=== PATIENT | female | born 1935 | race Caucasian/White ===

== ENCOUNTER 2024-04-22 12:34 | Observation (INO) ==
[2024-04-22 13:26] LABS: ABS Lymphocytes 0.7 10^3/uL (1.0-4.8); ABS Monocytes 0.2 10^3/uL (0.0-0.9); ABS Neutrophils 6.4 10^3/uL (1.5-7.6); ABS Nucleated RBC 0.01 10^3/ul; Eosinophil % 0.1 %; Hematocrit 38.4 % (35-45); Hemoglobin 12.9 g/dL (11.5-14.3); Lymphocyte % 9.8 %; Mean Corpuscular Hemoglobin 29.4 pg (27-33); Mean Corpuscular Hgb Conc 33.6 g/dL (31-36); Mean Corpuscular Volume 87.5 fL (80-97); Mean Platelet Volume 7.5 fL (7.5-11.2); Nucleated Red Blood Cells % 0.1 %/100WBC (0.0-0.8); Platelet Count 285 10^3/uL (150-450); Red Blood Count 4.39 10^6/uL (3.63-4.92); Red Cell Distribution Width 13.5 % (12-17); White Blood Count 7.4 10^3/uL (3.8-11.8)
[2024-04-22] MEDS: Ondansetron 4 mg VIAL 2 MG/ML 2 ml VIAL IV ONE (13:28)
[2024-04-22 14:05] LABS: Albumin 4.4 g/dL (3.2-5.2); Albumin/Globulin Ratio 2.1 (1-3); C Reactive Protein 1.03 mg/L (<8.01); Calcium 9.3 mg/dL (8.6-10.3); Creatinine, Serum 0.85 mg/dL (0.51-0.95); Globulin 2.1 g/dL (2-4); Potassium 4.3 mmol/L (3.5-5.0); Total Bilirubin 0.7 mg/dL (0.2-1.0); Total Protein 6.5 g/dL (6.4-8.9); eGFR CKD-EPI 66.3 (>60)
[2024-04-22] MEDS: Iohexol 350 (CONTRAST) 500 ML MDV IV ONE (15:02)
[2024-04-22] MEDS: Lactated Ringers 1000 ml BAG 1,000 ML IV ONE (17:40)
[2024-04-22] MEDS ORDERED: Propofol 10 MG/ML 20 ML BTL ONE (17:47)
[2024-04-22] MEDS ORDERED: Dexamethasone IV 4 MG/ML VIAL 1 ml VIAL ONE (17:47)
[2024-04-22] MEDS ORDERED: fentaNYL 100 mcg/2 ml 50 MCG/ML VIAL ONE (17:47)
[2024-04-22] MEDS ORDERED: Ondansetron 4 mg VIAL 2 MG/ML 2 ml VIAL ONE (17:47)
[2024-04-22] MEDS ORDERED: Lidocaine 2% PF 5 ML VIAL ONE (17:47)
[2024-04-22] MEDS ORDERED: Bupivacaine 0.5% SDV PF 30ML VIAL ONE (17:50)
[2024-04-22] MEDS ORDERED: Rocuronium 50 mg VIAL 10 mg/ml 5 ml VIAL (50 mg) ONE (18:07)
[2024-04-22] MEDS ORDERED: ceFAZolin 2 GM PREMIX 2 GM/50 ML BAG ONE (18:08)
[2024-04-22] MEDS ORDERED: Succinylcholine 200 mg VIAL 20 mg/ml 10 ml VIAL (200 mg) ONE (18:38)
[2024-04-22] MEDS ORDERED: HYDROmorphone 1 MG/1 ML SYRINGE IV SLOW PU PRN (20:35)
[2024-04-22] MEDS ORDERED: Ondansetron 4 mg VIAL 2 MG/ML 2 ml VIAL IV PRN ×2 (20:35→20:42)
[2024-04-22] MEDS ORDERED: HYDROmorphone 1 MG/1 ML SYRINGE IV PRN (20:42)
[2024-04-22] MEDS ORDERED: fentaNYL 100 mcg/2 ml 50 MCG/ML VIAL IV PRN (20:42)
[2024-04-22] MEDS ORDERED: Naloxone 0.4 mg VIAL 0.4 mg/ml 1 ml VIAL IV PRN (20:42)
[2024-04-22] MEDS ORDERED: Acetaminophen IV 1 GM/100ML 1,000 MG/100 ML BAG IV ONE (20:52)
[2024-04-22] MEDS: Acetaminophen IV 1 GM/100ML 1,000 MG/100 ML BAG IV SCH (20:53)
[2024-04-22] MEDS: Lactated Ringers 1000 ml BAG 1,000 ML IV SCH (22:20)
[2024-04-23 10:13] VITALS: BP 124/71
[2024-04-23] MEDS ORDERED: Enoxaparin 40 MG/0.4 ML SYR SUBCUT SCH (21:00)
== END 2024-04-23 12:50 | disposition home or self-care (01) ==
LOC: ED 12:34 → EDHOLD 12:34 → AA 17:48 → SSU 21:56
PROVIDERS: ADMIT Surgery Surgical Critical Care; ATTEND Surgery

== ENCOUNTER 2024-05-02 19:10 | Observation (INO) ==
[2024-05-02 20:43] LABS: ABS Eosinophils 0.1 10^3/uL (0.0-0.5); ABS Monocytes 0.7 10^3/uL (0.0-0.9); ABS Neutrophils 8.3 10^3/uL (1.5-7.6); ABS Nucleated RBC 0.01 10^3/ul; Eosinophil % 0.8 %; Hematocrit 40.3 % (35-45); Hemoglobin 13.7 g/dL (11.5-14.3); Lymphocyte % 9.7 %; Mean Corpuscular Hgb Conc 34.1 g/dL (31-36); Mean Platelet Volume 7.8 fL (7.5-11.2); Nucleated Red Blood Cells % 0.1 %/100WBC (0.0-0.8); Platelet Count 356 10^3/uL (150-450); Red Blood Count 4.58 10^6/uL (3.63-4.92); Red Cell Distribution Width 13.2 % (12-17); White Blood Count 10.1 10^3/uL (3.8-11.8)
[2024-05-02] MEDS: Lactated Ringers 1000 ml BAG 1,000 ML IV ONE (21:11)
[2024-05-02 21:22] LABS: Albumin 4.1 g/dL (3.2-5.2); Albumin/Globulin Ratio 1.8 (1-3); C Reactive Protein 3.52 mg/L (<8.01); Calcium 9.3 mg/dL (8.6-10.3); Creatinine, Serum 0.92 mg/dL (0.51-0.95); Globulin 2.3 g/dL (2-4); Potassium 4.2 mmol/L (3.5-5.0); Total Bilirubin 0.6 mg/dL (0.2-1.0); Total Protein 6.4 g/dL (6.4-8.9); eGFR CKD-EPI 60.3 (>60)
[2024-05-02] MEDS: Iohexol 300 (CONTRAST) 10 ML SDV IV ONE (22:00)
[2024-05-03] MEDS ORDERED: ACETAMINOPHEN IV PRN ×2 (01:11→11:32)
[2024-05-03] MEDS: NS 0.9% 1000 ml BAG 1,000 ML IV SCH (01:30)
[2024-05-03] MEDS: cefTRIAXone 1 gm/50 mL D5W 1 GM/50 ML BAG IV SCH (02:17)
[2024-05-03 09:10] LABS: ABS Eosinophils 0.1 10^3/uL (0.0-0.5); ABS Lymphocytes 0.9 10^3/uL (1.0-4.8); ABS Monocytes 0.5 10^3/uL (0.0-0.9); ABS Neutrophils 4.9 10^3/uL (1.5-7.6); Eosinophil % 1.4 %; Hematocrit 34.6 % (35-45); Hemoglobin 11.9 g/dL (11.5-14.3); Lymphocyte % 13.7 %; Mean Corpuscular Hemoglobin 30.2 pg (27-33); Mean Corpuscular Hgb Conc 34.4 g/dL (31-36); Mean Corpuscular Volume 87.7 fL (80-97); Mean Platelet Volume 7.9 fL (7.5-11.2); Nucleated Red Blood Cells % 0.1 %/100WBC (0.0-0.8); Platelet Count 316 10^3/uL (150-450); Red Blood Count 3.95 10^6/uL (3.63-4.92); Red Cell Distribution Width 13.4 % (12-17); White Blood Count 6.4 10^3/uL (3.8-11.8)
[2024-05-03 09:22] LABS: Calcium 8.4 mg/dL (8.6-10.3); Creatinine, Serum 0.8 mg/dL (0.51-0.95); Magnesium 2.1 mg/dL (1.9-2.7); Potassium 4.3 mmol/L (3.5-5.0); eGFR CKD-EPI 71.3 (>60)
[2024-05-03] MEDS: Enoxaparin 30 MG/0.3 ML SYR SUBCUT SCH ×2 (20:00→21:59)
[2024-05-03] MEDS ORDERED: cefTRIAXone 1 gm/50 mL D5W 1 GM/50 ML BAG IV SCH (22:30)
[2024-05-04 05:53] LABS: ABS Eosinophils 0.2 10^3/uL (0.0-0.5); ABS Lymphocytes 1.1 10^3/uL (1.0-4.8); ABS Monocytes 0.6 10^3/uL (0.0-0.9); ABS Neutrophils 4.7 10^3/uL (1.5-7.6); Eosinophil % 2.8 %; Hematocrit 34.4 % (35-45); Hemoglobin 11.7 g/dL (11.5-14.3); Lymphocyte % 16.9 %; Mean Corpuscular Hgb Conc 34.1 g/dL (31-36); Mean Corpuscular Volume 87.9 fL (80-97); Mean Platelet Volume 7.8 fL (7.5-11.2); Platelet Count 303 10^3/uL (150-450); Red Blood Count 3.91 10^6/uL (3.63-4.92); Red Cell Distribution Width 13.4 % (12-17); White Blood Count 6.6 10^3/uL (3.8-11.8)
[2024-05-04 06:08] LABS: Calcium 8.5 mg/dL (8.6-10.3); Creatinine, Serum 0.78 mg/dL (0.51-0.95); Potassium 3.9 mmol/L (3.5-5.0); eGFR CKD-EPI 73.5 (>60)
[2024-05-04 09:30] VITALS: BP 146/63
== END 2024-05-04 11:10 | disposition home or self-care (01) ==
LOC: ED 19:10 → EDHOLD 19:10 → SUATTDRO 05-03 01:00 → SSU 05-03 13:37
PROVIDERS: ADMIT Internal Medicine; ATTEND Student in an Organized Health Care Education/Training Program